=== PATIENT | male | born 1970 | race Two or more races ===

== ENCOUNTER 2018-04-25 22:19 | Emergency (ER) | payer MEDICARE, MEDICAID ==
[~2018-04-25] VITALS: Ht 175.3 cm; Wt 125.0 kg
[~2018-04-25 22:19] MED LIST: ALBU18HF INH; ARIP30TA4 PO; FLUT50DI INH; LEVO50TA5 PO; LORA10TA3 PO; LORA2TAB PO; OLAN10TA9 PO; OMEP40CA6 PO; ZOLP10TA5 PO; [UNRECOGNIZED DRUG - OTHER] PO
[2018-04-25 22:28] VITALS: BP 126/72
[2018-04-25] MEDS ORDERED: PLEASE ENTER HEIGHT AND WEIGHT MC SCH (22:30)
[2018-04-25] MEDS ORDERED: LORazepam 0.5MG TABLET PO ONE (22:30)
[2018-04-25] MEDS ORDERED: LORazepam 0.5MG TABLET ONE (22:34)
== END 2018-04-25 22:52 | disposition home or self-care (01) ==
LOC: ED 22:45
DX: F41.1 Generalized anxiety disorder (principal); F20.9 Schizophrenia, unspecified
CPT/HCPCS: 99284

== ENCOUNTER 2018-06-18 13:18 | Emergency (ER) | payer MEDICARE, MEDICAID ==
[~2018-06-18] VITALS: Ht 172.7 cm; Wt 152.0 kg
[2018-06-18] MEDS ORDERED: ALBUTEROL/IPRATROPIUM 2.5MG/0.5MG, 3 ML NPPB SCH (14:00)
[2018-06-18] MEDS ORDERED: SODIUM CHLORIDE FLUSH 10ML SYR IVF ONE (14:00)
[2018-06-18 14:16] LABS: BASOPHILS # (AUTO) 0.05 x10^3/uL (0-0.1); BASOPHILS % (AUTO) 0 % (0-1); EOSINOPHILS # (AUTO) 0.07 x10^3/uL (0-0.4); EOSINOPHILS % (AUTO) 1 % (1-7); LYMPHOCYTES # (AUTO) 2.88 x10^3/uL (1-3.4); LYMPHOCYTES % (AUTO) 23 % (22-44); MD NO; MEAN CORPUSCULAR HEMOGLOBIN 27.3 pg (27.5-34.5); MEAN CORPUSCULAR HGB CONC 32.4 g/dL (33.2-36.2); MEAN CORPUSCULAR VOLUME 84.3 fL (81-97); MEAN PLATELET VOLUME 7.8 fL (7.4-10.4); MONOCYTES # (AUTO) 0.48 x10^3/uL (0.2-0.8); MONOCYTES % (AUTO) 4 % (2-9); NEUTROPHILS % (AUTO) 72 % (42-75); PLATELET COUNT 279 x10^3/uL (130-400); RED BLOOD COUNT 6.41 x10^6/uL (4.38-5.82)
[2018-06-18] MEDS ORDERED: POTA10TA31 PO (14:23)
[2018-06-18] MEDS ORDERED: FLUT16SP NAS (14:23)
[2018-06-18] MEDS ORDERED: LURA60TA PO (14:23)
[2018-06-18] MEDS ORDERED: METF500T17 PO (14:23)
[2018-06-18] MEDS ORDERED: ALBUTEROL/IPRATROPIUM 2.5MG/0.5MG, 3 ML NEB ONE (14:25)
[2018-06-18] MEDS ORDERED: ALBUTEROL SULFATE 2.5 MG/3 ML NPPB ONE (14:25)
[2018-06-18 14:27] LABS: ALBUMIN 3.5 g/dL (3.4-5.0); ANION GAP 6 mmol/L (5-15); CALCIUM 8.8 mg/dL (8.5-10.1); CHLORIDE 101 mmol/L (98-107); CREATININE 1.12 mg/dL (0.7-1.3)
[2018-06-18 14:31] LABS: TROPONIN I < 0.015 ng/mL (0.000-0.045)
[2018-06-18] MEDS ORDERED: ALBUTEROL/IPRATROPIUM 2.5MG/0.5MG, 3 ML ONE (14:33)
[2018-06-18] MEDS ORDERED: ALBUTEROL SULFATE 2.5MG/0.5ML ONE (14:33)
[2018-06-18] MEDS ORDERED: FUROSEMIDE 40 MG/4 ML ONE (14:43)
[2018-06-18] MEDS ORDERED: FUROSEMIDE 40 MG/4 ML IV ONE (15:00)
[2018-06-18 15:12] VITALS: BP 137/91
== END 2018-06-18 15:23 | disposition home or self-care (01) ==
LOC: ED 13:40
DX: J44.1 Chronic obstructive pulmonary disease with (acute) exacerbation (principal); I50.9 Heart failure, unspecified; Z91.14 Patient's other noncompliance with medication regimen; F17.210 Nicotine dependence, cigarettes, uncomplicated
CPT/HCPCS: 36415; 71045; 80048; 82040; 83880; 84484; 85025; 85379; 93005; 94640; 99285; J7512; J7613; J7620

== ENCOUNTER 2018-10-18 05:05 | Observation (INO) | payer MEDICARE, MEDICAID ==
[~2018-10-18] VITALS: Ht 175.3 cm; Wt 149.0 kg
[~2018-10-18 05:05] MED LIST changes: +FLUT16SP NAS; +LORA-247 PO; -LORA10TA3 PO; +LURA60TA PO; +METF500T17 PO; +POTA10TA31 PO
[2018-10-18] MEDS ORDERED: ZIPRASIDONE 20 MG INJ IM ONE ×3 (05:30→20:00)
[2018-10-18 05:43] LABS: BASOPHILS # (AUTO) 0.07 x10^3/uL (0-0.1); BASOPHILS % (AUTO) 1 % (0-1); EOSINOPHILS # (AUTO) 0.11 x10^3/uL (0-0.4); EOSINOPHILS % (AUTO) 1 % (1-7); LYMPHOCYTES # (AUTO) 2.69 x10^3/uL (1-3.4); LYMPHOCYTES % (AUTO) 28 % (22-44); MD NO; MEAN CORPUSCULAR HEMOGLOBIN 28.6 pg (27.5-34.5); MEAN CORPUSCULAR HGB CONC 33.1 g/dL (33.2-36.2); MEAN CORPUSCULAR VOLUME 86.3 fL (81-97); MEAN PLATELET VOLUME 7.9 fL (7.4-10.4); MONOCYTES # (AUTO) 0.87 x10^3/uL (0.2-0.8); MONOCYTES % (AUTO) 9 % (2-9); NEUTROPHILS # (AUTO) 5.86 x10^3/uL (1.8-6.8); NEUTROPHILS % (AUTO) 61 % (42-75); PLATELET COUNT 213 x10^3/uL (130-400); RED BLOOD COUNT 6.28 x10^6/uL (4.38-5.82); RED CELL DISTRIBUTION WIDTH 15.7 % (9.4-14.8)
[2018-10-18 05:53] LABS: ALBUMIN 3.2 g/dL (3.4-5.0); ANION GAP 3 mmol/L (5-15); CHLORIDE 105 mmol/L (98-107); SALICYLATE LEVEL 2.3 mg/dL (2.8-20.0)
[2018-10-18 05:55] LABS: ACETAMINOPHEN < 2 mcg/mL (10-30)
--- NOTE | 2018-10-18 06:10 | NUR ---
PT IN HOSPITAL GOWN. ALL CLOTHING BAGGED, TAGGED AND PLACED IN CLOTHING CLOSET. PT ABLE TO ANSWER SOME QUESTIONS APPROPRIATLY. PT MEDICATED PER EMAR FOR AGITATION. PT COOPERATIVE WITH MEDS. PT STATED HE HAD RASH ON HIS BUTTOCKS. NO RASH NOTED ON EXAMINATION. PT LEFT ON O2 PER N/C AT 2L DUE TO SATING 85% ON RA. PT REMAINS CALM AND COOPERATIVE AT THIS TIME. WILL CONTINUE TO MONITOR.
--- NOTE | 2018-10-18 06:20 | NUR ---
PT UNABLE TO RECALL HOME MEDS, BUT STATED HE TAKES THEM EVERYDAY.
--- NOTE | 2018-10-18 07:00 | NUR ---
BEDSIDE REPORT TO OLMAN FLOREZ.
--- NOTE | 2018-10-18 07:29 | NUR ---
PT AMBULATED TO BR UA COLLECTED. PT COOPERATIVE. CXR DONE. PT RESTING
[2018-10-18 07:41] LABS: AMPHETAMINE SCREEN, URINE Negative (Negative); BARBITURATE SCREEN, URINE Negative (Negative); BENZODIAZEPINE SCREEN, URINE Negative (Negative); CANNABINOID SCREEN, URINE Negative (Negative); COCAINE SCREEN, URINE Negative (Negative); METHADONE SCREEN, URINE Negative (Negative); OPIATE SCREEN, URINE Negative (Negative)
[2018-10-18 07:43] LABS: TROPONIN I < 0.015 ng/mL (0.000-0.045)
[2018-10-18] MEDS ORDERED: ALBUTEROL/IPRATROPIUM 2.5MG/0.5MG, 3 ML ONE (08:21)
[2018-10-18] MEDS ORDERED: ACETAMINOPHEN 325 MG TABLET PO PRN (09:30)
[2018-10-18] MEDS ORDERED: ZOLPIDEM 5MG TABLET PO PRN (09:30)
[2018-10-18] MEDS ORDERED: ONDANSETRON ODT 4 MG PO PRN (09:30)
[2018-10-18] MEDS ORDERED: ONDANSETRON 2MG/ML, 2ML IVPush PRN (09:30)
[2018-10-18 10:44] LABS: HEMOGLOBIN A1C 5.8 % (4.2-6.3)
[2018-10-18 11:18] VITALS: BP 123/82
[2018-10-18] MEDS: SODIUM CHLORIDE 0.9% 1,000 ML IV SCH (11:50)
[2018-10-18] MEDS: HEPARIN 5,000 UNITS/ML, 1ML SQ SCH ×2 (11:51→17:31)
[2018-10-18 12:30] VITALS: BP 132/91
[2018-10-18] MEDS: INSULIN LISPRO 100 UNITS/ML, PEN SQ-INSULIN SCH ×3 (12:42→20:40)
[2018-10-18] MEDS: LACTOBACILLUS CHEW TABLET PO SCH ×2 (17:30→20:40)
[2018-10-18] MEDS: HYDROXYZINE PAMOATE 50MG CAP PO SCH ×2 (17:30→20:40)
[2018-10-18] MEDS: CARVEDILOL 3.125 MG TABLET PO SCH (17:31)
[2018-10-18 20:46] VITALS: BP 127/85
[2018-10-18] MEDS ORDERED: LURASIDONE 20 MG TABLET PO SCH (21:00)
[2018-10-18] MEDS ORDERED: metFORMIN 500 MG TABLET PO SCH (21:00)
[2018-10-19] MEDS: HEPARIN 5,000 UNITS/ML, 1ML SQ SCH ×2 (01:30→10:13)
[2018-10-19 02:04] VITALS: BP 121/80
[2018-10-19 04:31] LABS: ANION GAP 6 mmol/L (5-15); CALCIUM 8.4 mg/dL (8.5-10.1); CHLORIDE 107 mmol/L (98-107)
[2018-10-19 04:32] LABS: CREATININE 1.13 mg/dL (0.7-1.3)
[2018-10-19] MEDS: SODIUM CHLORIDE 0.9% 1,000 ML IV SCH (05:12)
[2018-10-19] MEDS: CARVEDILOL 3.125 MG TABLET PO SCH (05:12)
[2018-10-19 06:41] VITALS: BP 117/81
[2018-10-19] MEDS: INSULIN LISPRO 100 UNITS/ML, PEN SQ-INSULIN SCH ×2 (07:00→11:00)
[2018-10-19] MEDS ORDERED: ZIPRASIDONE 20 MG INJ IM ONE (07:13)
[2018-10-19] MEDS: LACTOBACILLUS CHEW TABLET PO SCH (08:36)
[2018-10-19] MEDS: metFORMIN 850 MG TABLET PO SCH ×2 (08:37→13:11)
[2018-10-19] MEDS: HYDROXYZINE PAMOATE 50MG CAP PO SCH (08:37)
[2018-10-19] MEDS ORDERED: ARIPIPRAZOLE 15 MG TABLET PO SCH (09:00)
[2018-10-19] MEDS ORDERED: ZOLPIDEM 10MG TABLET PO SCH ×2 (09:00→21:00)
[2018-10-19] MEDS ORDERED: LEVOTHYROXINE 50 MCG TABLET PO SCH (09:00)
[2018-10-19] MEDS ORDERED: POTASSIUM CHLORIDE 10 MEQ TABLET.ER PO SCH (09:00)
[2018-10-19] MEDS ORDERED: METF850T PO (09:51)
[2018-10-19] MEDS ORDERED: ACID1TAB7 PO (09:51)
[2018-10-19] MEDS ORDERED: CARV3.1212 PO (09:51)
[2018-10-19 14:00] VITALS: BP 133/86
== END 2018-10-19 16:19 | disposition home or self-care (01) ==
LOC: ED 06:21 → INTOOBSV 08:27 → EDIP 08:27 → 4WST 09:47
PROVIDERS: ADMIT Internal Medicine; ATTEND Internal Medicine
DX: R41.82 Altered mental status, unspecified (principal); R45.1 Restlessness and agitation; J44.1 Chronic obstructive pulmonary disease with (acute) exacerbation; I11.0 Hypertensive heart disease with heart failure; I50.9 Heart failure, unspecified; E03.9 Hypothyroidism, unspecified; E66.01 Morbid (severe) obesity due to excess calories; F20.89 Other schizophrenia; F41.1 Generalized anxiety disorder; Z79.84 Long term (current) use of oral hypoglycemic drugs; Z91.14 Patient's other noncompliance with medication regimen; Z91.19 Patient's noncompliance with other medical treatment and regimen
CPT/HCPCS: 36415; 36600; 71045; 80048; 80307; 80329; 82040; 82803; 82962; 83036; 83880; 84484; 85025; 93005; 94640; 96360; 96361; 96372; 99284; G0378; J1644; J1815; J3486; J7030; J7512; G0480

== ENCOUNTER 2018-10-24 11:43 | Emergency (ER) | payer MEDICARE, MEDICAID ==
[~2018-10-24] VITALS: Ht 172.7 cm; Wt 151.2 kg
[~2018-10-24 11:43] MED LIST changes: +ACID1TAB7 PO; +CARV3.1212 PO; +METF850T PO
[2018-10-24 11:57] VITALS: BP 118/80
[2018-10-24 12:40] LABS: MEAN CORPUSCULAR HEMOGLOBIN 28.2 pg (27.5-34.5); MEAN CORPUSCULAR HGB CONC 32.4 g/dL (33.2-36.2); MEAN PLATELET VOLUME 8.5 fL (7.4-10.4); PLATELET COUNT 199 x10^3/uL (130-400); RED BLOOD COUNT 6.38 x10^6/uL (4.38-5.82); RED CELL DISTRIBUTION WIDTH 16.2 % (9.4-14.8)
[2018-10-24 12:42] LABS: ALBUMIN 3.1 g/dL (3.4-5.0); ANION GAP 3 mmol/L (5-15); CALCIUM 8.7 mg/dL (8.5-10.1); CHLORIDE 105 mmol/L (98-107)
--- NOTE | 2018-10-24 13:04 | NUR ---
SUSTAINABLE DESIGN COORDINATOR: PT TO ROOM FROM LOBBY
[2018-10-24 13:17] LABS: BASOPHILS # (AUTO) 0.08 x10^3/uL (0-0.1); BASOPHILS % (AUTO) 1 % (0-1); EOSINOPHILS # (AUTO) 0.08 x10^3/uL (0-0.4); EOSINOPHILS % (AUTO) 1 % (1-7); LYMPHOCYTES # (AUTO) 2.76 x10^3/uL (1-3.4); LYMPHOCYTES % (AUTO) 26 % (22-44); MONOCYTES # (AUTO) 0.63 x10^3/uL (0.2-0.8); MONOCYTES % (AUTO) 6 % (2-9); NEUTROPHILS # (AUTO) 7.21 x10^3/uL (1.8-6.8); NEUTROPHILS % (AUTO) 67 % (42-75)
[2018-10-24 13:55] LABS: MD NO
== END 2018-10-24 13:53 | disposition home or self-care (01) ==
LOC: ED 13:45
DX: K64.4 Residual hemorrhoidal skin tags (principal); I50.9 Heart failure, unspecified; J44.9 Chronic obstructive pulmonary disease, unspecified; E11.9 Type 2 diabetes mellitus without complications
CPT/HCPCS: 36415; 80048; 82040; 85025; 99283

== ENCOUNTER 2019-03-27 16:38 | Emergency (ER) | payer MEDICARE, MEDICAID ==
[~2019-03-27] VITALS: Ht 170.2 cm; Wt 145.0 kg
[2019-03-27 21:22] VITALS: BP 120/65
== END 2019-03-27 21:24 | disposition home or self-care (01) ==
LOC: ED 21:18
DX: F22 Delusional disorders (principal); I50.9 Heart failure, unspecified; E11.9 Type 2 diabetes mellitus without complications; J44.9 Chronic obstructive pulmonary disease, unspecified; F17.200 Nicotine dependence, unspecified, uncomplicated; F41.1 Generalized anxiety disorder; F20.9 Schizophrenia, unspecified
CPT/HCPCS: 36415; 71045; 80053; 80307; 83880; 85025; 93005; 99284